=== PATIENT | female | born 1970 | race Caucasian/White ===

== ENCOUNTER → 2020-05-08 | Outpatient (CLI) | payer BC ==
[~2020-05-08] MED LIST: PERCOCET 325 MG1 TA7 PO; PREDNICOT10 MG PO; SALINE MIST 4545 ML NAS
== END | disposition home or self-care (01) ==
LOC: MRI 08:00
PROVIDERS: ATTEND Nurse Practitioner Family
DX: R26.89 Other abnormalities of gait and mobility (principal); H53.9 Unspecified visual disturbance; R47.81 Slurred speech; R20.2 Paresthesia of skin; R53.83 Other fatigue; R27.8 Other lack of coordination

== ENCOUNTER 2020-05-11 11:10 | Observation (INO) | payer BC ==
[~2020-05-11] VITALS: Ht 162.5 cm; Wt 73.5 kg
[2020-05-11 11:20] VITALS: BP 122/79
[2020-05-11 12:10] LABS: BASO % 0.4 % (0.0-1.0); EOS # 0.3 10*3/uL (0.0-0.4); EOS % 3.6 % (1.0-4.0); HEMATOCRIT 39.5 % (37.0-47.0); LYMPH # 1.7 10*3/uL (1.3-4.4); LYMPH % 23.8 % (27.0-41.0); MEAN CELL VOLUME 92.5 fl (81.0-99.0); MEAN CORPUSCULAR HGB 30.2 pg (27.0-31.0); MEAN CORPUSCULAR HGB CONC 32.7 g/dl (33.0-37.0); MEAN PLATELET VOLUME 9.3 fl (9.6-12.3); MONO # 0.5 10*3/uL (0.1-1.0); NEUT # 4.5 10*3/uL (2.3-7.9); NEUT % 64.9 % (47.0-73.0); PLATELET COUNT AUTOMATED 241 10*3/uL (130-400); RED BLOOD COUNT 4.27 10*6/uL (4.10-5.10); RED CELL DISTRI WIDTH 13.2 % (0-14.5)
[2020-05-11 12:21] LABS: ACT PARTIAL THROMBO TIME 28.7 SECONDS (20.0-32.1)
[2020-05-11 12:36] LABS: ALBUMIN 3.4 gm/dl (3.1-4.5); ALKALINE PHOSPHATASE 48 U/L (45-117); BUN 14 mg/dl (7-24); CHLORIDE 113 mmol/L (98-107); CREATININE 0.96 mg/dL (0.55-1.02); POTASSIUM 4.1 mmol/L (3.5-5.1); SGOT/AST 11 IU/L (3-35); SGPT/ALT 10 U/L (12-78); SODIUM 141 mmol/L (136-145); TOTAL PROTEIN 6.6 gm/dL (6.4-8.2)
[2020-05-11 12:38] LABS: TROPONIN I < 0.015 ng/ml (<0.045)
[2020-05-11 13:41] VITALS: BP 122/81
--- NOTE | 2020-05-11 14:10 | NUR ---
PT STATED THAT SHE IS STILL FEELING DIZZY. PT RESTING IN BED WITH SIDE RAIL UP AND CALL LIGHT IN REACH.
[2020-05-11 15:33] VITALS: BP 132/63
[2020-05-11 16:00] VITALS: BP 138/92
--- NOTE | 2020-05-11 16:16 | NUR ---
ATEMPT MADE TO CONTACT INPT NURSE UNSUCCESSFUL. WILL CONTINUE TO MONITOR PT.
--- NOTE | 2020-05-11 16:30 | NUR ---
A 49, admitted to , under the services of DARI Zhu DO with a diagnosis of SYNCOPE AND COLLAPSE, SINUS [place]RA[place]. Chief complaint is DIZZINESS. Patient arrived via bed from [place]. Monitor applied. Initial assessment completed. Vital signs taken and recorded. DARI ZHU DO notified of admission to the unit. Orders received. See assessment for past medical history, medications and allergies. Patient and/or family oriented to unit. [address] visitation policy reviewed. Clothing/patient valuable form completed. KIRK JOHNSTON
--- NOTE | 2020-05-11 19:08 | NUR ---
DR CHANDLER NOTIFIED OF PT'S REQUEST FOR [facility]. ALSO NOTIFIED OF PT'S CRYING AND REQUEST TO SPEAK TO SOMEONE FROM PSYCHOLOGY.
[2020-05-11 20:00] VITALS: BP 125/87
--- NOTE | 2020-05-11 20:00 | NUR ---
PATIENT POLITELY REFUSING ORTHOSTATIC BP AT THIS TIME DUE TO ANXIETY AND NAUSEA, WILL TRY AGAIN LATER.
--- NOTE | 2020-05-11 23:00 | NUR ---
PATIENT REFUSING ORTHOSTATIC BP AT THIS TIME DUE TO NAUSEA, WILL TRY BACK. PATIENT STATES SHE DOESNT NEED ANYTHING AT THIS TIME.
[2020-05-12] VITALS: BP 124/80
--- NOTE | 2020-05-12 03:00 | NUR ---
Patient resting quietly with no c/o discomfort. Respirations easy and regular. Vital signs stable. No overt distress. CORINA GOLDBERG
--- NOTE | 2020-05-12 04:47 | NUR ---
U NOTIFIED OF [facility] CONSULT
[2020-05-12 06:32] LABS: BASO % 0.7 % (0.0-1.0); EOS # 0.4 10*3/uL (0.0-0.4); EOS % 5.9 % (1.0-4.0); HEMATOCRIT 37.7 % (37.0-47.0); LYMPH # 2.6 10*3/uL (1.3-4.4); LYMPH % 43.6 % (27.0-41.0); MEAN CELL VOLUME 93.1 fl (81.0-99.0); MEAN CORPUSCULAR HGB 30.1 pg (27.0-31.0); MEAN CORPUSCULAR HGB CONC 32.4 g/dl (33.0-37.0); MEAN PLATELET VOLUME 10.3 fl (9.6-12.3); MONO # 0.5 10*3/uL (0.1-1.0); MONO % 8.2 % (3.0-9.0); NEUT # 2.5 10*3/uL (2.3-7.9); NEUT % 41.3 % (47.0-73.0); PLATELET COUNT AUTOMATED 233 10*3/uL (130-400); RED BLOOD COUNT 4.05 10*6/uL (4.10-5.10); RED CELL DISTRI WIDTH 13.1 % (0-14.5)
[2020-05-12 06:44] LABS: ALBUMIN 2.9 gm/dl (3.1-4.5); BUN 12 mg/dl (7-24); CHLORIDE 114 mmol/L (98-107); CHOLESTEROL 218 mg/dL (<200); CREATININE 0.93 mg/dL (0.55-1.02); POTASSIUM 4.2 mmol/L (3.5-5.1); SGOT/AST 13 IU/L (3-35); SGPT/ALT 7 U/L (12-78); SODIUM 144 mmol/L (136-145); TOTAL PROTEIN 6.1 gm/dL (6.4-8.2); TRIGLYCERIDES 65 mg/dl (<150); VLDL CHOLESTEROL 13 mg/dL (6-40)
[2020-05-12 06:51] LABS: ALKALINE PHOSPHATASE 40 U/L (45-117); HDL CHOLESTEROL 59 mg/dl (40-60); LDL CHOLESTEROL 146 mg/dL (9-159)
[2020-05-12 08:00] VITALS: BP 112/70
--- NOTE | 2020-05-12 08:00 | NUR ---
Patient resting quietly in bed. Respirations easy and regular. Pt states she feels "not right". Pt states she has had anxiety and they have been trying to get her meds right. Pt noted to have a trembly voice. Vital signs stable. No overt distress. CARLYN DEVI
[2020-05-12 08:39] LABS: VITAMIN D, 25-HYDROXY 47.8 ng/mL (30-100)
--- NOTE | 2020-05-12 09:00 | NUR ---
[employer] in to talk to patient. Patient states lives at home with friend. There are no steps in the home. Physician: emmett arteaga Pharmacy: mail Home health services: none Patient's level of ADLs: INDEPENDENT Patient has working utilities: all working DME: none Follow-up physician's appointment after d/c: will be made by hospitalist nurse director upon discharge Does patient want to access PORTAL?: no Discharge plan discussed with patient, she states she lives at home with her friend, she is independent in adls and ambulation, she drives, she states she will return home when discharged and denies any home needs, case management will follow. ERIC CLAROS
--- NOTE | 2020-05-12 09:55 | NUR ---
PHYSICAL THERAPY Physical Therapy evaluation completed on 4E with full evaluation to follow. Observation PT evaluation completed for assessment of potential vertigo and treatment. Patient presents with positive sacadic eye movement, indicating potential central nervous system involvement. Recommendation for neurological consult if indicated per physician assessment. No skilled PT needs are indicated at this time. Recommend return home upon discharge. Thank you for this referral. Thank you. Rut Anders,PT,DPT
[2020-05-12 12:00] VITALS: BP 116/68
--- NOTE | 2020-05-12 13:32 | NUR ---
MRI DISC GIVEN TO PATIENT.
[2020-05-12 16:00] VITALS: BP 111/61
[2020-05-12 16:09] LABS: LUPUS DRVVT 39.3 sec (0.0-47.0); LUPUS REFLEX INTERPRETATION Comment: (.)
--- NOTE | 2020-05-12 16:21 | NUR ---
PT ANXIOUS, C/O DOUBLE VISION, TINGLING TO LIPS AND TONGUE. NEURO CHECKS WNL. Beverly IQBAL NP NOTIFIED. ORDERS TO BE PLACED.
--- NOTE | 2020-05-12 16:53 | NUR ---
PT REFUSED XANAX. PT STATES IT'S NOT ANXIETY. PT STILL C/O DOUBLE VISION. AND TINGLING TO LIPS. Gerson IQBAL NP NOTIFIED. ORDERS TO FOLLOW.
--- NOTE | 2020-05-12 18:12 | NUR ---
PT REQUESTED AND WAS MEDICATED ZOFRAN IV FOR C/O NAUSEA. CALL LIGHT IN REACH. WILL MONITOR
--- NOTE | 2020-05-12 18:43 | NUR ---
MEDICATION EFFECTIVE PER PT. WILL MONITOR
--- NOTE | 2020-05-12 19:55 | NUR ---
VISTARIL GIVEN PER ORDER FOR ANXIETY. SEE MAR.
[2020-05-12 20:00] VITALS: BP 111/76
--- NOTE | 2020-05-12 20:55 | NUR ---
VISTARIL BECOMING EFFECTIVE PER PATIENT SHE IS BECOMING MORE RELAXED.
[2020-05-13] VITALS: BP 107/63
--- NOTE | 2020-05-13 03:18 | NUR ---
24 HR chart check completed.
--- NOTE | 2020-05-13 04:00 | NUR ---
SLEEPING NO ACUTE DISTRESS NOTED.
[2020-05-13 08:00] VITALS: BP 120/80
--- NOTE | 2020-05-13 09:15 | NUR ---
PT REQUESTED AND WAS MEDICATED WITH DULCOLAX FOR C/O CONSTIPATION. CALL LIGHT IN REACH. WILL MONITOR.
[2020-05-13] MEDS ORDERED: AUGMENTIN 875875 MG PO (09:57)
--- NOTE | 2020-05-13 10:00 | NUR ---
DISC WITH MRI, CAROTID US AND CT HEAD GIVEN TO PATIENT.
--- NOTE | 2020-05-13 11:15 | NUR ---
PT HAD QUESTIONS RELATED TO CURRENT DIAGNOSIS/FOLLOW UP. Gerson IQBAL NP CALLED AND CAME AND SPOKE WITH PT. SHE SPOKE WITH THE PATIENT AT LENGTH, PATIENTS QUESTIONS AND CONCERNS ANSWERED, PT THANKED HER. Gerson IQBAL NP OFFERED MULTIPLE TIMES FOR A TRANSFER TO [place] FOR A NEUROLOGY CONSULT. PT DECLINED. PT STATES SHE HAS FRIENDS THAT CAN GET HER THERE.
--- NOTE | 2020-05-13 11:30 | NUR ---
DURING DISCHARGE PROCESS PT BECAME VERY ANGRY AND USING SWEAR WORDS AT THIS NURSE RELATED TO DISCHARGE AND FOLLOW UP APPT FOR [facility] NOT UNITL NEXT WEEK. SHE STATES SHE IS STILL SYMPOTAMATIC, YET IS REFUSING TRANSFER FOR CONTINUED MONITORING/NEUROLOGY CONSULT IN [place]. PT STATES SHE HAS PEOPLE THAT WILL TAKE HER ON HER OWN. TRANSFER OFFERED AGAIN. PT STILL REFUSES.
--- NOTE | 2020-05-13 11:43 | NUR ---
Discharge instructions reviewed with patient/family. Patient receptive and verbalizes understanding. Follow-up care arranged. Written instructions given to patient/family. CARLYN DEVI
== END 2020-05-13 11:43 | disposition home or self-care (01) ==
LOC: ED 11:10 → EDHOLD 12:49 → 4E 15:26
PROVIDERS: Emergency Medicine; Registered Nurse; ADMIT Student in an Organized Health Care Education/Training Program; ATTEND Student in an Organized Health Care Education/Training Program
DX: R55 Syncope and collapse (principal); R00.1 Bradycardia, unspecified; E87.8 Other disorders of electrolyte and fluid balance, not elsewhere classified; E44.0 Moderate protein-calorie malnutrition; J32.9 Chronic sinusitis, unspecified; F32.9 Major depressive disorder, single episode, unspecified; F41.9 Anxiety disorder, unspecified; R27.0 Ataxia, unspecified; F17.210 Nicotine dependence, cigarettes, uncomplicated

== ENCOUNTER → 2020-05-29 | Outpatient (CLI) | payer BC ==
[~2020-05-29] MED LIST changes: +AUGMENTIN 875875 MG PO
== END | disposition home or self-care (01) ==
LOC: US 11:22
PROVIDERS: ATTEND Nurse Practitioner Family
DX: E04.2 Nontoxic multinodular goiter (principal); R00.1 Bradycardia, unspecified

== ENCOUNTER 2020-07-13 21:52 | Emergency (ER) | payer OTHER ==
[~2020-07-13] VITALS: Ht 162.5 cm; Wt 72.6 kg
[2020-07-13 22:03] VITALS: BP 124/80
[2020-07-13 22:15] LABS: BASO % 0.4 % (0.0-1.0); EOS # 0.1 10*3/uL (0.0-0.4); EOS % 1.6 % (1.0-4.0); HEMATOCRIT 39.8 % (37.0-47.0); LYMPH # 2.8 10*3/uL (1.3-4.4); LYMPH % 39.4 % (27.0-41.0); MEAN CELL VOLUME 89.8 fl (81.0-99.0); MEAN CORPUSCULAR HGB 29.8 pg (27.0-31.0); MEAN CORPUSCULAR HGB CONC 33.2 g/dl (33.0-37.0); MEAN PLATELET VOLUME 9.5 fl (9.6-12.3); MONO # 0.6 10*3/uL (0.1-1.0); MONO % 8.6 % (3.0-9.0); NEUT # 3.5 10*3/uL (2.3-7.9); NEUT % 49.9 % (47.0-73.0); PLATELET COUNT AUTOMATED 235 10*3/uL (130-400); RED BLOOD COUNT 4.43 10*6/uL (4.10-5.10); RED CELL DISTRI WIDTH 12.8 % (0-14.5)
[2020-07-13 22:32] LABS: ALBUMIN 3.6 gm/dl (3.1-4.5); ALKALINE PHOSPHATASE 55 U/L (45-117); BUN 14 mg/dl (7-24); CHLORIDE 112 mmol/L (98-107); CREATININE 1.01 mg/dL (0.55-1.02); POTASSIUM 3.6 mmol/L (3.5-5.1); SGOT/AST 17 IU/L (3-35); SGPT/ALT 15 U/L (12-78); SODIUM 142 mmol/L (136-145)
[2020-07-13 22:37] LABS: TROPONIN I < 0.015 ng/ml (<0.045)
== END 2020-07-14 01:44 | disposition home or self-care (01) ==
LOC: ED 21:52
PROVIDERS: Internal Medicine
DX: R07.9 Chest pain, unspecified (principal); R55 Syncope and collapse; F17.210 Nicotine dependence, cigarettes, uncomplicated; Z88.6 Allergy status to analgesic agent; Z91.013 Allergy to seafood

== ENCOUNTER → 2021-12-15 | Outpatient (CLI) | payer OTHER | END | disposition home or self-care (01) | LOC: US 08:12 → MAMMO 09:30 | PROVIDERS: ATTEND Internal Medicine Nephrology | DX: Z12.31 Encounter for screening mammogram for malignant neoplasm of breast (principal); R42 Dizziness and giddiness; K76.0 Fatty (change of) liver, not elsewhere classified ==

== ENCOUNTER 2021-12-17 15:33 | Emergency (ER) | payer OTHER ==
[2021-12-17 15:41] VITALS: BP 162/85
[2021-12-17 16:45] LABS: BASO % 0.6 % (0.0-1.0); EOS # 0.3 10*3/uL (0.0-0.4); HEMATOCRIT 40.8 % (37.0-47.0); LYMPH # 2.2 10*3/uL (1.3-4.4); LYMPH % 31.9 % (27.0-41.0); MEAN CELL VOLUME 92.1 fl (81.0-99.0); MEAN CORPUSCULAR HGB 30.2 pg (27.0-31.0); MEAN CORPUSCULAR HGB CONC 32.8 g/dl (33.0-37.0); MEAN PLATELET VOLUME 9.7 fl (9.6-12.3); MONO # 0.6 10*3/uL (0.1-1.0); MONO % 8.1 % (3.0-9.0); NEUT # 3.8 10*3/uL (2.3-7.9); NEUT % 55.1 % (47.0-73.0); PLATELET COUNT AUTOMATED 255 10*3/uL (130-400); RED BLOOD COUNT 4.43 10*6/uL (4.10-5.10); RED CELL DISTRI WIDTH 13.1 % (0-14.5); WHITE BLOOD COUNT 6.8 10*3/uL (4.8-10.8)
[2021-12-17 16:45] LABS: BILIRUBIN Negative (Negative); BLOOD Negative (Negative); CLARITY Clear (Clear); COLOR Yellow (Yellow); GLUCOSE Negative (Negative); KETONE Negative (Negative); LEUKO ESTERASE Negative (Negative); NITRITE Negative (Negative); SPECIFIC GRAVITY <= 1.005 (1.001-1.030); UROBILINOGEN 0.2 E.U./dl (0.0-1.0)
[2021-12-17 16:55] LABS: BACTERIA TRACE; EPITHELIAL CELLS 0-2; WBC 0-2 wbc/hpf (0-5)
[2021-12-17 16:59] LABS: ALKALINE PHOSPHATASE 56 U/L (45-117); BUN 12 mg/dl (7-24); CHLORIDE 110 mmol/L (98-107); CREATININE 1.02 mg/dL (0.55-1.02); SGOT/AST 22 IU/L (3-35); SGPT/ALT 17 U/L (12-78); SODIUM 141 mmol/L (136-145); TOTAL PROTEIN 6.7 gm/dL (6.4-8.2)
== END 2021-12-17 19:56 | disposition home or self-care (01) ==
LOC: ED 15:33
PROVIDERS: Nurse Practitioner Family
DX: K42.9 Umbilical hernia without obstruction or gangrene (principal); Z88.6 Allergy status to analgesic agent; Z91.013 Allergy to seafood; F17.210 Nicotine dependence, cigarettes, uncomplicated; Z90.49 Acquired absence of other specified parts of digestive tract

== ENCOUNTER → 2022-08-19 | Outpatient (CLI) | payer OTHER ==
[2022-08-20 08:08] LABS: HBSAG Negative (Negative); HEP B CORE AB, IGM Negative (Negative); HEPATITIS C ANTIBODY <0.1 (0.0-0.9)
== END | disposition home or self-care (01) ==
LOC: LAB 12:23
PROVIDERS: ATTEND Internal Medicine Nephrology
DX: Z11.3 Encounter for screening for infections with a predominantly sexual mode of transmission (principal); N89.8 Other specified noninflammatory disorders of vagina

== ENCOUNTER 2022-11-08 16:39 | Emergency (ER) | payer OTHER ==
[~2022-11-08] VITALS: Ht 162.5 cm; Wt 74.8 kg
[2022-11-08 17:32] VITALS: BP 150/80
[2022-11-08 18:24] LABS: BASO % 0.4 % (0.0-1.0); EOS # 0.3 10*3/uL (0.0-0.4); EOS % 3.6 % (1.0-4.0); HEMATOCRIT 39.5 % (37.0-47.0); LYMPH % 29.1 % (27.0-41.0); MEAN CELL VOLUME 92.1 fl (81.0-99.0); MEAN CORPUSCULAR HGB 31.2 pg (27.0-31.0); MEAN CORPUSCULAR HGB CONC 33.9 g/dl (33.0-37.0); MEAN PLATELET VOLUME 9.7 fl (9.6-12.3); MONO # 0.6 10*3/uL (0.1-1.0); MONO % 8.8 % (3.0-9.0); NEUT % 57.8 % (47.0-73.0); PLATELET COUNT AUTOMATED 242 10*3/uL (130-400); RED BLOOD COUNT 4.29 10*6/uL (4.10-5.10); RED CELL DISTRI WIDTH 13.2 % (0-14.5); WHITE BLOOD COUNT 6.9 10*3/uL (4.8-10.8)
[2022-11-08 19:12] LABS: ALKALINE PHOSPHATASE 54 U/L (46-116); BUN 10 mg/dl (9-23); CHLORIDE 107 mmol/L (98-107); POTASSIUM 3.9 mmol/L (3.4-5.1); THYROID STIM HORMONE (HS) 1.476 uIU/ml (0.550-4.780); TOTAL PROTEIN 6.2 gm/dL (6.0-8.0)
[2022-11-08 19:13] LABS: SGPT/ALT < 7 U/L (10-49)
== END 2022-11-08 22:32 | disposition left against medical advice (07) ==
LOC: ED 16:39
PROVIDERS: Emergency Medicine
DX: R20.2 Paresthesia of skin (principal); M79.641 Pain in right hand; H53.8 Other visual disturbances; R51.9 Headache, unspecified; M79.661 Pain in right lower leg; Z91.041 Radiographic dye allergy status; Z88.5 Allergy status to narcotic agent; Z91.013 Allergy to seafood; Z90.710 Acquired absence of both cervix and uterus; Z90.49 Acquired absence of other specified parts of digestive tract; Z90.89 Acquired absence of other organs; Z98.890 Other specified postprocedural states; F17.210 Nicotine dependence, cigarettes, uncomplicated

== ENCOUNTER 2022-11-16 11:53 | Emergency (ER) | payer OTHER ==
[~2022-11-16] VITALS: Wt 81.6 kg
[2022-11-16 12:07] VITALS: BP 157/85
== END 2022-11-16 18:14 | disposition home or self-care (01) ==
LOC: ED 11:53
DX: R20.2 Paresthesia of skin (principal); M79.641 Pain in right hand; M79.604 Pain in right leg; R60.0 Localized edema; H53.8 Other visual disturbances; H53.149 Visual discomfort, unspecified; Z91.041 Radiographic dye allergy status; Z88.5 Allergy status to narcotic agent; Z91.013 Allergy to seafood; Z90.710 Acquired absence of both cervix and uterus; Z90.49 Acquired absence of other specified parts of digestive tract; Z90.89 Acquired absence of other organs; Z98.890 Other specified postprocedural states; F17.210 Nicotine dependence, cigarettes, uncomplicated

== ENCOUNTER 2023-02-28 09:46 | Emergency (ER) | payer OTHER ==
[~2023-02-28] VITALS: Wt 77.1 kg
[2023-02-28 09:56] VITALS: BP 136/85
[2023-02-28 10:12] LABS: BILIRUBIN Negative (Negative); BLOOD 1+ (Negative); CLARITY Clear (Clear); COLOR Dark Yellow (Yellow); GLUCOSE Negative (Negative); KETONE Negative (Negative); LEUKO ESTERASE 3+ (Negative); NITRITE Positive (Negative); SPECIFIC GRAVITY <= 1.005 (1.001-1.030)
[2023-02-28 10:32] LABS: BACTERIA 3+; WBC 41-50 wbc/hpf (0-5)
[2023-02-28] MEDS ORDERED: OMNICEF300 MG PO (10:45)
== END 2023-02-28 10:53 | disposition home or self-care (01) ==
LOC: ED 09:46
PROVIDERS: Student in an Organized Health Care Education/Training Program
DX: N39.0 Urinary tract infection, site not specified (principal); Z91.041 Radiographic dye allergy status; Z88.5 Allergy status to narcotic agent; Z91.013 Allergy to seafood; Z90.710 Acquired absence of both cervix and uterus; Z90.49 Acquired absence of other specified parts of digestive tract; Z90.89 Acquired absence of other organs; Z98.890 Other specified postprocedural states; F17.210 Nicotine dependence, cigarettes, uncomplicated

== ENCOUNTER 2023-09-01 14:44 | Emergency (ER) | payer SELFPAY ==
[~2023-09-01] VITALS: Ht 162.5 cm; Wt 74.8 kg
[~2023-09-01 14:44] MED LIST changes: +OMNICEF300 MG PO
[2023-09-01 15:22] VITALS: BP 140/83
[2023-09-01 15:36] LABS: BILIRUBIN Negative (Negative); BLOOD Negative (Negative); CLARITY Clear (Clear); COLOR Dark Yellow (Yellow); GLUCOSE Negative (Negative); KETONE Negative (Negative); LEUKO ESTERASE 1+ (Negative); NITRITE Positive (Negative)
[2023-09-01] MEDS ORDERED: CIPRO500 MG PO (15:44)
[2023-09-01] MEDS ORDERED: OXYBUTYNIN5 MG PO (15:44)
[2023-09-01 15:51] LABS: BACTERIA 4+; RBC 0-2 rbc/hpf (0-2)
== END 2023-09-01 15:30 | disposition home or self-care (01) ==
LOC: ED 14:44
PROVIDERS: Emergency Medicine
DX: N39.0 Urinary tract infection, site not specified (principal); F17.210 Nicotine dependence, cigarettes, uncomplicated; Z91.041 Radiographic dye allergy status; Z88.5 Allergy status to narcotic agent; Z91.013 Allergy to seafood; Z90.710 Acquired absence of both cervix and uterus; Z90.49 Acquired absence of other specified parts of digestive tract; Z90.89 Acquired absence of other organs; Z98.890 Other specified postprocedural states

== ENCOUNTER 2023-11-30 11:16 | Emergency (ER) | payer SELFPAY ==
[~2023-11-30] VITALS: Wt 72.6 kg
[~2023-11-30 11:16] MED LIST changes: +CIPRO500 MG PO; +OXYBUTYNIN5 MG PO
[2023-11-30 11:39] VITALS: BP 145/89
[2023-11-30] MEDS ORDERED: Lidocaine Hydrochloride 15 ML UDC PO STA (11:48)
[2023-11-30] MEDS ORDERED: BENZOCAINE 20% 11.9 GM GEL T STA (11:48)
[2023-11-30] MEDS ORDERED: PENICILLIN VK500 MG PO (11:52)
== END 2023-11-30 12:06 | disposition home or self-care (01) ==
LOC: ED 11:16
DX: K08.89 Other specified disorders of teeth and supporting structures (principal); F17.210 Nicotine dependence, cigarettes, uncomplicated; Z91.041 Radiographic dye allergy status; Z88.5 Allergy status to narcotic agent; Z91.013 Allergy to seafood; Z90.89 Acquired absence of other organs; Z90.49 Acquired absence of other specified parts of digestive tract; Z90.710 Acquired absence of both cervix and uterus; Z98.890 Other specified postprocedural states

== ENCOUNTER 2023-12-12 18:30 | Emergency (ER) | payer MEDICAID ==
[~2023-12-12] VITALS: Ht 162.5 cm; Wt 72.6 kg
[~2023-12-12 18:30] MED LIST changes: +PENICILLIN VK500 MG PO
[2023-12-12 19:40] VITALS: BP 138/43
[2023-12-12] MEDS ORDERED: SODIUM CHLORIDE 0.9% 1,000 ML IV ONE (19:45)
[2023-12-12] MEDS ORDERED: Metoclopramide Hydrochloride 10 MG/2 ML AMP IV ONE (19:45)
[2023-12-12] MEDS ORDERED: diphenhydrAMINE hydrochloride 50 MG/ML VIAL IV ONE (19:50)
[2023-12-12 20:04] LABS: BASO % 0.1 % (0.0-1.0); EOS % 0.3 % (1.0-4.0); HEMATOCRIT 45.2 % (37.0-47.0); LYMPH # 0.7 10*3/uL (1.3-4.4); MEAN CELL VOLUME 92.8 fl (81.0-99.0); MEAN CORPUSCULAR HGB CONC 32.3 g/dl (33.0-37.0); MEAN PLATELET VOLUME 10.1 fl (9.6-12.3); MONO # 0.5 10*3/uL (0.1-1.0); MONO % 4.9 % (3.0-9.0); NEUT # 8.4 10*3/uL (2.3-7.9); NEUT % 87.4 % (47.0-73.0); PLATELET COUNT AUTOMATED 233 10*3/uL (130-400); RED BLOOD COUNT 4.87 10*6/uL (4.10-5.10); RED CELL DISTRI WIDTH 13.3 % (0-14.5); WHITE BLOOD COUNT 9.7 10*3/uL (4.8-10.8)
[2023-12-12 20:26] LABS: ALKALINE PHOSPHATASE 54 U/L (46-116); BUN 13 mg/dl (9-23); CHLORIDE 107 mmol/L (98-107); LIPASE 48 U/L (12-53); POTASSIUM 3.4 mmol/L (3.4-5.1); SGPT/ALT 8 U/L (5-49); TOTAL PROTEIN 7.2 gm/dL (6.0-8.0)
[2023-12-12 20:46] LABS: ACT PARTIAL THROMBO TIME 26.8 SECONDS (20.0-32.1)
[2023-12-12 22:12] LABS: BILIRUBIN Negative (Negative); BLOOD Negative (Negative); CLARITY Clear (Clear); COLOR Yellow (Yellow); GLUCOSE Negative (Negative); KETONE Trace (Negative); LEUKO ESTERASE Negative (Negative); NITRITE Negative (Negative); PH 5.5 (4.5-8.0); SPECIFIC GRAVITY >= 1.030 (1.001-1.030)
[2023-12-12 22:38] LABS: BACTERIA TRACE; MUCOUS 1+
[2023-12-12] MEDS ORDERED: ONDANSETRON4 MG SL (22:44)
== END 2023-12-12 23:08 | disposition home or self-care (01) ==
LOC: ED 18:30
PROVIDERS: Internal Medicine
DX: A05.9 Bacterial foodborne intoxication, unspecified (principal); R11.2 Nausea with vomiting, unspecified; R07.89 Other chest pain; R19.7 Diarrhea, unspecified; F17.210 Nicotine dependence, cigarettes, uncomplicated; Z91.041 Radiographic dye allergy status; Z88.5 Allergy status to narcotic agent; Z91.013 Allergy to seafood; Z90.711 Acquired absence of uterus with remaining cervical stump; Z90.49 Acquired absence of other specified parts of digestive tract; Z90.89 Acquired absence of other organs